=== PATIENT | male | born 1980 | race Hispanic/Latino ===

== ENCOUNTER 2022-07-22 18:38 | Emergency (ER) | payer OTHER ==
--- OUTSIDE RECORDS SUMMARY | 2022-07-22 18:55 | XMS REPORT | Continuity of Care Document ---
:1980 Author Organization [facility] t Address 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 Last Assessmen t & Plan: He may have obstructi ve sleep apnea, will study him overnight and see. The apparatus was supplied here today. Hypertensi Hypertensi Disease Active [facility] on on 8-08 College 00:00: of 00 Medicin e Deficiency Deficiency Disease Active [facility] of 808 College testostero testostero 00:00: of ne ne 00 Medicin biosynthes biosynthes e is is Hyperestro Hyperestro Disease Active [facility] genisheather genisheather 604 College 00:00: of 00 Medicin e Vitamin D Vitamin D Disease Active [facility] deficiency deficiency 4-23 Co llege 00:00: of 00 Medicin e Anxiety Anxiety Disease Active [facility] 2-12 College 00:00: of 00 Medicin e Pain of Pain of Disease Active [facility] left heel left heel 7-11 [facility] 00:00: of 00 Medicin e Allergies, Adverse Reactions, Alerts Allergy Allergy Status Severity Reaction(s) Onset Inactive Treating Comm ents Source Name Type Date Date Clinician NO KNOWN Allergy Active [facility] Social History Social Habit Start Date Stop Date Quantity Comments Source Alcohol intake 2020-11-13 2020-11-13 Current drinker eegoes 00:00:00 00:00:00 of alcohol [facility] Center (finding) Tobacco use and 2020-11-07 2020-11-07 [address] [employer] [facility] Autumn [place] [facility] exposure 00:00:00 00:00:00 Medical Center Sex Ass[birth year] At [birth year] [facility] 00:00:00 00:00:00 Medical Center Smoking Status Start Date Stop Date Source Never smoker [facility] Medications Ordered Filled Start Stop Current Ordering Indication Dosage Frequency Signature Comments Components Source Medication Medication Date Date Medication? Clinician (SIG) Name Name VYVTYLERE 50 Yes [facility] CAPS 04 College 00:00: of 00 Medicin e VYVANSE 50 Yes [facility] MG CAPS 804 College 00:00: of 00 Medicin e hydrocodone Yes [id number] Take 1-2 [facility] -acetaminop 6-14 tablets by Co attila tidwell (NORCO) 00:00: mouth of 10-325 MG 00 every 6 Medicin per tablet hours as e needed for pain promethazin Yes [id number] 25mg Take 1 [facility] e 6-14 Tablet by [place] (PHENERGAN) 00:00: mouth of 25 MG 00 every 6 Medicin tablet hours as e needed for Nausea. hydrocodone 2020-0 Yes [id number] Take 1-2 [facility] -acetaminop 6-14 tablets by Co llege hen ([email or web address]) 00:00: mouth of 10-325 MG 00 every 6 Medicin per tablet hours as e needed for pain promethazin 2020-0 Yes [id number] 25mg Take 1 [facility] e 6-14 Tablet by [place] (PHENERGAN) 00:00: mouth of 25 MG 00 every 6 Medicin tablet hours as e needed for Nausea. hydrocodone 2020-0 Yes [id number] Take 1-2 [facility] -acetaminop 6-14 tablets by [facility] ([email or web address]) 00:00: mouth of 10-325 MG 00 every 6 Medicin per tablet hours as e needed for pain promethazin 2020-0 Yes [id number] 25mg Take 1 [facility] e 6-14 Tablet by [place] (PHENERGAN) 00:00: mouth of 25 MG 00 every 6 Medicin tablet hours as e needed for Nausea. hydrocodone 0 Yes [id number] Take 1-2 [facility] -acetaminop 6-14 tablets by [employer] ([email or web address]) 00:00: mouth of 10-325 MG 00 every 6 Medicin per tablet hours as e needed for pain promethazin 2020-0 Yes [id number] 25mg Take 1 [facility] e 6-14 Tablet by [place] (PHENERGAN) 00:00: mouth of 25 MG 00 every 6 Medicin tablet hours as e needed for Nausea. ezetimibe Yes 10mg QD Take [address] [facility] [address] [facility] (ZETIA) 10 6-11 [facility] mg tablet 13:45: daily. Medica l 50 Center losartan 2020-0 Yes 100mg QD Take [address] [facility] [address] (COZAAR) 6-11 mg by [facility] 100 MG 13:45: mouth Medical tablet 50 daily. Center phentermine 2020-0 Yes 37.5mg QD Take 37.[address] 37.5 MG 6-11 mg by [facility] capsule 13:45: mouth Medical 50 every Center morning. ezetimibe 0 Yes [facility] (ZETIA) 10 5-30 College MG tablet 00:00: of 00 Medicin e ezetimibe 0 Yes [facility] (ZETIA) 10 5-30 College MG tablet 00:00: of 00 Medicin e ezetimibe 0 Yes [facility] (ZETIA) 10 5-30 College MG tablet 00:00: of 00 Medicin e ezetimibe 0 Yes [facility] (ZETIA) 10 5-30 College MG tablet 00:00: of 00 Medicin e ezetimibe 0 Yes [facility] (ZETIA) 10 5-30 College MG tablet 00:00: of 00 Medicin e ezetimibe 0 Yes [facility] (ZETIA) 10 5-30 College MG tablet 00:00: of 00 Medicin e losartan 0 Yes TAKE 1 [facility] (COZAAR) 5-07 TABLET BY Colleg e 100 MG 00:00: MOUTH of tablet 00 EVERY DAY Medicin e losartan 0 Yes TAKE 1 [facility] (COZAAR) 5-07 TABLET BY Colleg e 100 MG 00:00: MOUTH of tablet 00 EVERY DAY Medicin e losartan 0 Yes TAKE 1 [facility] (COZAAR) 5-07 TABLET BY Colleg e 100 MG 00:00: MOUTH of tablet 00 EVERY DAY Medicin e losartan 0 Yes TAKE 1 [facility] (COZAAR) 5-07 TABLET BY Colleg e 100 MG 00:00: MOUTH of tablet 00 EVERY DAY Medicin e losartan 0 Yes TAKE 1 [facility] (COZAAR) 5-07 TABLET BY Colleg e 100 MG 00:00: MOUTH of tablet 00 EVERY DAY Medicin e losartan 0 Yes TAKE 1 [facility] (COZAAR) 5-07 TABLET BY Colleg e 100 MG 00:00: MOUTH of tablet 00 EVERY DAY Medicin e VYVANSE 50 2020-0 Yes [facility] CAPS 5-04 College 00:00: of 00 Medicin e VYVANSE 50 2020-0 Yes [facility] CAPS 5-04 College 00:00: of 00 Medicin e VYVANSE 50 2020-0 Yes [facility] MG CAPS 5-04 College 00:00: of 00 Medicin e VYVANSE 50 2020-0 Yes [facility] CAPS 5-04 College 00:00: of 00 Medicin e VYVANSE 50 2020- No [facility] MG CAPS 10-03 College 00:00: 00:00 of 00 :00 Medicin e VYVANSE 50 2020- No [facility] CAPS 10-03 College 00:00: 00:00 of 00 :00 Medicin e phentermine Yes TAKE 1 [facility] (ADIPEX-P) 3-05 TABLET BY [facility] 37.5 MG 00:00: MOUTH of tablet 00 EVERY DAY Medicin e phentermine Yes TAKE 1 [facility] (ADIPEX-P) 3-05 TABLET BY [facility] 37.5 MG 00:00: MOUTH of tablet 00 EVERY DAY Medicin e phentermine Yes TAKE 1 [facility] (ADIPEX-P) 3-05 TABLET BY [facility] 37.5 MG 00:00: MOUTH of tablet 00 EVERY DAY Medicin e phentermine Yes TAKE 1 [facility] (ADIPEX-P) 3-05 TABLET BY [facility] 37.5 MG 00:00: MOUTH of tablet 00 EVERY DAY Medicin e phentermine Yes TAKE 1 [facility] (ADIPEX-P) 3-05 TABLET BY [facility] 37.5 MG 00:00: MOUTH of tablet 00 EVERY DAY Medicin e phentermine Yes TAKE 1 [facility] (ADIPEX-P) 3-05 TABLET BY [facility] 37.5 MG 00:00: MOUTH of tablet 00 EVERY DAY Medicin e Vital Signs Vital Name Observation Time Observation Value Comments Source HEIGHT 2020-11-10 08:00:00 172.7 cm WEIGHT 2020-11-10 08:00:00 101.9 kg HEIGHT 2020-11-07 13:46:00 172.7 cm WEIGHT 2020-11-07 13:46:00 99.791 kg Body height 2021-02-01 18:44:00 172.7 cm [facility] Body weight 2021-02-01 18:44:00 99.791 kg [facility] of Medicine BMI 2021-02-01 18:44:00 33.45 kg/m2 [facility] Body height 2020-12-21 18:16:00 172.7 cm [facility] Body weight 2020-12-21 18:16:00 99.791 kg [facility] BMI 2020-12-21 18:16:00 33.45 kg/m2 [facility] Body height 2020-11-16 19:08:00 172.7 cm [facility] Body weight 2020-11-16 19:08:00 99.791 kg [facility] BMI 2020-11-16 19:08:00 33.45 kg/m2 [facility] C ol[facility] of Medicine HEIGHT 2020-11-10 08:00:00 172.7 cm WEIGHT 2020-11-10 08:00:00 101.9 kg HEIGHT 2020-11-07 13:46:00 172.7 cm WEIGHT 2020-11-07 13:46:00 99.791 kg Body height 2020-11-02 20:03:00 172.7 cm [facility] Body weight 2020-11-02 20:03:00 99.791 kg [facility] BMI 2020-11-02 20:03:00 33.45 kg/m2 [facility] C [facility] of [facility] Body height 2020-10-31 21:02:00 172.7 cm [facility] C [facility] of Medicine Body weight 2020-10-31 21:02:00 99.791 kg [facility] BMI 2020-10-31 21:02:00 33.45 kg/m2 [facility] C [facility] Procedures This patient has no known procedures. Plan of Care Planned Activity Planned Date Details Comments Source Future Scheduled 2022-06-[address] [facility] Test 00:00:00 (12+) [code = Medical Center DEPRESSION SCREENING (12+)] Future Scheduled 2022-01-31 INFLUENZA VACCINE (#1) [facility] 00:00:00 [code = INFLUENZA Medical Ce nter VACCINE (#1)] Future Scheduled 2021-11-[address] [facility] Test 00:00:00 [facility] r Screening (12+) [code = Tobacco Cessation Counseling and Screening (12+)] Future Scheduled 2021-02-05 COVID-19 Vaccine (1) [facility] Test 13:41:04 [code = COVID-19 of Medicine Vaccine (1)] Future Scheduled 2021-02-05 TETANUS SHOT (ADULT) [facility] Test 13:41:04 [code = TETANUS SHOT of Medi cine (ADULT)] Future Scheduled 2021-02-05 BMI FOLLOW UP PLAN [facility] r College Test 13:41:04 [code = BMI FOLLOW UP of Med icine PLAN] Future Scheduled 2021-02-05 Hepatitis C screening [facility] Test 13:41:04 (procedure) [code = of Medic ine 281374845] Future Scheduled 2021-02-05 [facility] 13:41:04 virus screening of Medicine (procedure) [code = 818701386] Future Scheduled 2021-02-05 FLU VACCINE > 6 MONTHS Postponed from [facility] Test 13:41:04 [code = FLU VACCINE > 6 12/31/2020 of M edicine MONTHS] (Postpone Reason: Patient declined today) Future Scheduled 2021-02-05 COVID-19 Vaccine (1) [facility] Test 13:41:04 [code = COVID-19 of Medicine Vaccine (1)] Future Scheduled 2021-02-05 TETANUS SHOT (ADULT) [facility] Test 13:41:04 [code = TETANUS SHOT of Medi cine (ADULT)] Future Scheduled 2021-02-05 BMI FOLLOW UP PLAN [facility] r [facility] Test 13:41:04 [code = BMI FOLLOW UP of Med icine PLAN] Future Scheduled 2021-02-05 Hepatitis C screening [employer] [facility] [employer] Test 13:41:04 (procedure) [code = of Medic ine [id number]] Future Scheduled 2021-02-05 [facility] 13:41:04 virus screening of Medicine (procedure) [code = 795896659] Future Scheduled 2021-02-05 FLU VACCINE > 6 MONTHS Postponed from [facility] Test 13:41:04 [code = FLU VACCINE > 6 12/31/2020 of M edicine MONTHS] (Postpone Reason: Patient declined today) Future Scheduled 2020-12-21 Hepatitis C screening [employer] Test 14:51:56 (procedure) [code = of Medic ine 633523022] Future Scheduled 2020-12-21 Human immunodeficiency [facility] Test 14:51:56 virus screening of Medicine (procedure) [code = 261181926] Future Scheduled 2020-12-21 FLU VACCINE > 6 MONTHS [facility] Test 14:51:56 [code = FLU VACCINE > 6 of M edicine MONTHS] Future Scheduled 2020-12-21 COVID-19 Vaccine (1) [facility] [facility] [employer] Test 14:51:56 [code = COVID-19 of Medicine Vaccine (1)] Future Scheduled 2020-12-21 TETANUS SHOT (ADULT) [employer] [facility] Test 14:51:56 [code = TETANUS SHOT of Medi cine (ADULT)] Future Scheduled 2020-12-21 BMI FOLLOW UP PLAN [employer] [facility] [employer] Test 14:51:56 [code = BMI FOLLOW UP of Med icine PLAN] Future Scheduled 2020-11-16 COVID-19 Vaccine (1) [facility] [employer] Test 14:10:13 [code = COVID-19 of Medicine Vaccine (1)] Future Scheduled 2020-11-16 TETANUS SHOT (ADULT) [employer] [facility] Test 14:10:13 [code = TETANUS SHOT of Medi cine (ADULT)] Future Scheduled 2020-11-16 BMI FOLLOW UP PLAN [employer] Test 14:10:13 [code = BMI FOLLOW UP of Med icine PLAN] Future Scheduled 2020-11-16 Hepatitis C screening [employer] [facility] Test 14:10:13 (procedure) [code = of Medic ine 540960523] Future Scheduled 2020-11-16 [facility] 14:10:13 virus screening of Medicine (procedure) [code = 426682587] Future Scheduled 2020-11-16 FLU VACCINE > 6 MONTHS [facility] Test 14:10:13 [code = FLU VACCINE > 6 of M edicine MONTHS] Future Scheduled 2020-11-02 TETANUS SHOT (ADULT) [facility] [facility] Test 15:09:17 [code = TETANUS SHOT of Medi cine (ADULT)] Future Scheduled 2020-11-02 BMI FOLLOW UP PLAN [employer] Test 15:09:17 [code = BMI FOLLOW UP of Med icine PLAN] Future Scheduled 2020-11-02 Hepatitis C screening [employer] Test 15:09:17 (procedure) [code = of Medic ine 757962490] Future Scheduled 2020-11-02 [facility] 15:09:17 virus screening of Medicine (procedure) [code = 887512309] Future Scheduled 2020-11-02 FLU VACCINE > 6 MONTHS B [facility] Test 15:09:17 [code = FLU VACCINE > 6 of M edicine MONTHS] Future Scheduled 2020-11-02 COVID-19 Vaccine (1) [facility] Test 15:09:17 [code = COVID-19 of Medicine Vaccine (1)] Future Scheduled 2020-10-31 [place] SLINGS [code = Ordered: [facility] Test 16:38:09 [id number]] 10/31/2020 of Medicine Future Scheduled 2020-10-31 MRI CHEST WO CONTRAST 1 Occurrences B [facility] Test 16:34:37 [code = 02687] starting of Medicine 10/31/2020 until 10/31/2021 Future Scheduled 2020-10-31 COVID-19 Vaccine (1) [facility] Test 16:19:12 [code = COVID-19 of Medicine Vaccine (1)] Future Scheduled 2020-10-31 TETANUS SHOT (ADULT) [facility] Test 16:19:12 [code = TETANUS SHOT of Medi cine (ADULT)] Future Scheduled 2020-10-31 Hepatitis C screening [facility] Test 16:19:12 (procedure) [code = of Medic ine 390383819] Future Scheduled 2020-10-31 Human immunodeficiency B [facility] Test 16:19:12 virus screening of Medicine (procedure) [code = 717989089] Future Scheduled 2020-10-31 FLU VACCINE > 6 MONTHS B [facility] Test 16:19:12 [code = FLU VACCINE > 6 of M edicine MONTHS] Future Scheduled 2016 Lipid panel (procedure) [facility] Test 00:00:00 [code = 34252247] Medical Ce nter Future Scheduled 2000 DTAP/TDAP/TD VACCINES [facility] 00:00:00 (1 - Tdap) [code = Medical C enter DTAP/TDAP/TD VACCINES (1 - Tdap)] Future Scheduled 1999 HEPATITIS C [facility]CREENING [facility] Test 00:00:00 [code = HEPATITIS C Medical Center SCREENING] Future Scheduled 1981 COVID-19 VACCINE (#1) [facility] Test 00:00:00 [code = COVID-[address] VACCINE (#1)] Encounters Start End Encounter Admission Attending Care Care Encounter Source Date/Time Date/Time Type Type Clinicians Facility Department ID 2021-03-11 Outpatient PREMA SIFUENTES Surgery [id number] SLE 00:02:24 LITTLE 2021-02-01 2021-02-01 Office KRISTIN Sifuentes [id number] [facility] 13:40:28 15:14:54 Visit Little Lan AMBULATOR [id number] College Y 0.2.7.2.686 of [id number] Medi inocencia 600 e 2020-12-21 2020-12-21 Office KRISTIN Cardona [id number] [facility] 13:56:22 14:35:08 Visit Castillo Marcelo AMBULATOR [id number] College Y 0.2.7.2.686 of [id number] Medi inocencia 600 e 2020-11-28 2020-11-[address] [facility] [id number] SLE 00:00:00 00:00:00 LITTLE 2020-11-16 2020-11-16 Office KRISTIN Sifuentes [id number] [facility] 13:59:16 14:22:57 Visit Little Lan AMBULATOR [id number] College Y 0.2.7.2.686 of [id number] Medi inocencia 600 e 2020-11-07 2020-11-07 Outpatient [facility] [id number] [facility] 00:00:00 00:00:00 2020-11-02 2020-11-02 Office KRISTIN Sifuentes [id number] [facility] 13:49:18 14:04:18 Visit Little Lan AMBULATOR [id number] College Y 0.2.7.2.686 of [id number] Medi inocencia 600 e 2020-10-31 2020-10-31 Office KRISTIN Sifuentes [id number] [facility] 15:05:39 15:20:39 Visit Little Lan AMBULATOR [id number] College Y [id number] of [id number] Medi inocencia 600 e Results Test Description Test Time Test Comments Results Result Comments Source BUN AND CREATININE W/RATIO 2020-11-10 08:39:00 Test Item Value Reference Range Interpretation Comme nts BLOOD UREA NITROGEN 14 mg/dL 7-21 (BEAKER) (test code = 354) CREATININE (BEAKER) (test 1.08 mg/dL 0.57-1.25 code = 358) BUN/CREAT RATIO (BEAKER) 13 For a normal individual on (test code = 2988582116) a n ormal diet, the reference inter helen for the mass ratio rang es between 12:1 and 20:1 ( BUN in mg/dL/creatinin e in mg/dL) EGFR (BEAKER) (test code = 76 mL/min/1.73 sq m ESTIMATED GFR IS NOT 1092) ACCURATE CRE ATININE CLEARANCE IN [place] EDICTING GLOMERULAR FILT RATION RATE. ESTIMATED GFR IS NOT APPLICABLE FOR DIALYSIS PATIENTS. [id number] 08:39:00 Test Item Value Reference Range Interpretation Comments SODIUM (BEAKER) (test 137 meq/L 136-145 code = 381) POTASSIUM (BEAKER) 4.7 meq/L 3.5-5.1 Specimen slightly (test code = 379) hemolyzed CHLORIDE (BEAKER) 104 meq/L 98-107 (test code = 382) CO2 (BEAKER) (test 29 meq/L 22-29 code = 355) [id number] 08:32:00 Test Item Value Reference Range Interpretation Comments HEMOGLOBIN (BEAKER) (test code = 15.8 GM/DL 13.7-17.5 410)
--- NOTE | 2022-07-22 20:06 | RAD REPORT ---
EXAM DESCRIPTION: RAD - Chest Single View - 07/22/2022 7:43 pm CLINICAL HISTORY: PALPITATIONS Chest pain. COMPARISON: CHEST SINGLE VIEW dated 01/10/2015; CHEST SINGLE VIEW dated 03/27/2012 FINDINGS: Portable technique limits examination quality. The lungs are grossly clear. The heart is normal in size. No displaced fractures. IMPRESSION: No acute intrathoracic process suspected.
[2022-07-22 23:15] LABS: Absolute Lymphocytes (CBC) 1.2 K/uL (0.7-4.9); Hematocrit 48.2 % (39.6-49.0); Lymphocytes % 21.7 % (15.3-44.8); MCV 92.4 fL (80-100); MPV 8.4 fL (7.6-11.3); RBC Red Blood Cell Count 5.22 M/uL (4.33-5.43)
[2022-07-22 23:38] LABS: Albumin 4.3 g/dL (3.4-5.0); Bilirubin Total 1.1 mg/dL (0.2-1.0); Magnesium 1.8 mg/dL (1.6-2.4); Protein, Total 7.9 g/dL (6.4-8.2); Thyroid Stimulating Hormone 2.09 uIU/mL (0.358-3.740); Troponin High Sensitivity 6.4 pg/mL (<58.9)
--- NOTE | 2022-07-22 23:56 | ER ---
Nurse's Notes [facility] Name: Atul Su Age: 42 yrs Sex: Male : 1980 Arrival Date: 07/22/2022 Time: 18:51 Bed 25 Private MD: Diagnosis: Palpitations Presentation: 07/22 18:58 Chief complaint: Patient states: Palpitations since this morning, left arm tingling x jl7 30 minutes. Coronavirus screen: At this time, the client does not indicate any symptoms associated with coronavirus-19. Ebola Screen: No symptoms or risks identified at this time. Initial Sepsis Screen: Does the patient meet any 2 criteria? No. Patient's initial sepsis screen is negative. Does the patient have a suspected source of infection? No. Patient's initial sepsis screen is negative. Risk Assessment: Do you want to hurt yourself or someone else? Patient reports no desire to harm self or others. Onset of symptoms was July 22, 2022. 18:58 Method Of Arrival: Ambulatory jl 18:58 Acuity: RUIZ 2 jl7 Historical: - Allergies: 19:01 No Known Allergies; jl7 - Home Meds: 19:01 valsartan oral [Active]; jl7 - PMHx: 19:01 Hypertensive disorder; jl7 - PSHx: 19:01 left shoulder; jl7 - Immunization history:: Adult Immunizations unknown. - Social history:: Smoking status: Patient denies any tobacco usage or history of. - Family history:: not pertinent. Screenin:49 [facility] ED Fall Risk Assessment (Adult) History of falling in the last 3 months, ll3 including since admission No falls in past 3 months (0 pts) Confusion or Disorientation No (0 pts) Intoxicated or Sedated No (0 pts) Impaired Gait No (0 pts) Mobility Assist Device Used No (0 pt) Altered Elimination No (0 pt) Score/Fall Risk Level 0 - 2 = Low Risk Oriented to surroundings, Maintained a safe environment, Educated pt \T\ family on fall prevention, incl call for assistance when getting out of bed. Abuse screen: Denies threats or abuse. Denies injuries from another. Nutritional screening: No deficits noted. Tuberculosis screening: No symptoms or risk factors identified. Assessment: 22:49 General: Appears comfortable, Behavior is calm, cooperative. Pain: Denies pain. Neuro: ll3 Level of Consciousness is awake, alert, obeys commands, Oriented to person, place, time, situation. Cardiovascular: Reports palpitations, Patient's skin is warm and dry. Respiratory: Respiratory effort is even, unlabored, Respiratory pattern is regular, symmetrical. Derm: Skin is pink, warm \T\ dry. 07/23 00:08 Reassessment: Patient is alert, oriented x 3, equal unlabored respirations, skin bb warm/dry/pink. pt verbalized understanding of and agrees to plan of care discharge instructions given pt ambulated with steady gait to exit accompanied by family. Vital Signs: 07/22 18:58 Pulse 96; Resp 17; Temp 99; Pulse Ox 99% ; Weight 106.59 kg; Height 5 ft. 9 in. (175.26 jl7 cm); Pain 3/10; 19:08 BP 142 / 80; jl7 22:41 BP 133 / 76; Pulse 85; Resp 18; Temp 98.8; Pulse Ox 97% on R/A; mw2 07/23 00:10 BP 139 / 83; Pulse 86; Resp 16 S; Temp 98.4(O); Pulse Ox 98% on R/A; bb 07/22 18:58 Body Mass Index 34.70 (106.59 kg, 175.26 cm) jl7 ED Course: 07/22 18:51 Patient arrived in ED. rg4 19:01 Triage completed. jl7 19:01 Arm band placed on right wrist. EKG completed in triage. Results shown to MD. jl7 19:06 Anton Landrum MD is Attending Physician. rt 22:48 Initial lab(s) drawn, by me, sent to lab. Inserted saline lock: 20 gauge in left ll3 antecubital area, using aseptic technique. Blood collected. 22:49 Patient has correct armband on for positive identification. Bed in low position. Call 3 light in reach. Side rails up X 1. 22:49 No provider procedures requiring assistance completed. ll3 23:02 Ayse Blankenship, YESI is Primary Nurse. bb 23:56 Rony Prince MD is Referral Physician. rt 07/23 00:10 IV discontinued, intact, bleeding controlled, No redness/swelling at site. Pressure bb dressing applied. Administered Medications: No medications were administered Medication: 07/22 22:49 VIS not applicable for this client. ll3 Outcome: 23:56 Discharge ordered by . rt 07/23 00:10 Discharged to home ambulatory, with family. bb Condition: stable Discharge instructions given to patient, Instructed on discharge instructions, follow up and referral plans. Demonstrated understanding of instructions, follow-up care. 00:11 Patient left the ED. bb Signatures: Ayse Blankenship, RN RN bb Palak Lou rg4 Fany Guerra RN RN jl7 Rom Overton 2 Eloisa Currie RN RN ll3 Anton Landrum MD MD rt
--- NOTE | 2022-07-22 23:56 | EDPHYS ---
Physician Documentation [facility] Name: Atul Su Age: 42 yrs Sex: Male : 1980 Arrival Date: 07/22/2022 Time: 18:51 Bed 25 Private MD: ED Physician Anton Landrum HPI: 07/22 19:26 This 42 yrs old Male presents to ER via Ambulatory with complaints of rt Palpitations, Arm Pain. 19:26 Patient presents to the ED with palpitations starting at about noon. Patient states rt that symptoms are worse when he lies down flat. Patient developed a tingling in his arm this evening is prompted him to come to the ED for evaluation. The patient denies chest pain. He states the palpitations been intermittent, none currently. Symptoms are moderate in severity, no other aggravating or alleviating factors. Historical: - Allergies: 19:01 No Known Allergies; jl7 - Home Meds: 19:01 valsartan oral [Active]; jl7 - PMHx: 19:01 Hypertensive disorder; jl7 - PSHx: 19:01 left shoulder; jl7 - Immunization history:: Adult Immunizations unknown. - Social history:: Smoking status: Patient denies any tobacco usage or history of. - Family history:: not pertinent. ROS: 19:26 Constitutional: Negative for fever, chills, and weight loss, Neck: Negative for injury, rt pain, and swelling, Respiratory: Negative for shortness of breath, cough, wheezing, and pleuritic chest pain, Abdomen/GI: Negative for abdominal pain, nausea, vomiting, diarrhea, and constipation, MS/Extremity: Negative for injury and deformity, Skin: Negative for injury, rash, and discoloration, Neuro: Negative for headache, weakness, numbness, tingling, and seizure, Psych: Negative for depression, anxiety, suicide ideation, homicidal ideation, and hallucinations. 19:26 Cardiovascular: Positive for palpitations, Negative for chest pain. Exam: 19:26 Constitutional: This is a well developed, well nourished patient who is awake, alert, rt and in no acute distress. Head/Face: Normocephalic, atraumatic. Neck: Trachea midline, no thyromegaly or masses palpated, and no cervical lymphadenopathy. Supple, full range of motion without nuchal rigidity, or vertebral point tenderness. No Meningismus. Chest/axilla: Normal chest wall appearance and motion. Nontender with no deformity. No lesions are appreciated. Cardiovascular: Regular rate and rhythm with a normal S1 and S2. No gallops, murmurs, or rubs. Normal PMI, no JVD. No pulse deficits. Respiratory: Lungs have equal breath sounds bilaterally, clear to auscultation and percussion. No rales, rhonchi or wheezes noted. No increased work of breathing, no retractions or nasal flaring. Abdomen/GI: Soft, non-tender, with normal bowel sounds. No distension or tympany. No guarding or rebound. No evidence of tenderness throughout. Skin: Warm, dry with normal turgor. Normal color with no rashes, no lesions, and no evidence of cellulitis. MS/ Extremity: Pulses equal, no cyanosis. Neurovascular intact. Full, normal range of motion. Neuro: Awake and alert, GCS 15, oriented to person, place, time, and situation. Cranial nerves II-XII grossly intact. Motor strength 5/5 in all extremities. Sensory grossly intact. Cerebellar exam normal. Normal gait. Psych: Awake, alert, with orientation to person, place and time. Behavior, mood, and affect are within normal limits. 19:26 ECG was reviewed by the Attending Physician. Vital Signs: 18:58 Pulse 96; Resp 17; Temp 99; Pulse Ox 99% ; Weight 106.59 kg; Height 5 ft. 9 in. (175.26 jl7 cm); Pain 3/10; 19:08 BP 142 / 80; jl7 22:41 BP 133 / 76; Pulse 85; Resp 18; Temp 98.8; Pulse Ox 97% on R/A; mw2 07/23 00:10 BP 139 / 83; Pulse 86; Resp 16 S; Temp 98.4(O); Pulse Ox 98% on R/A; bb 07/22 18:58 Body Mass Index 34.70 (106.59 kg, 175.26 cm) jl7 MDM: 07/22 19:14 Patient medically screened. rt 07/23 02:29 Differential diagnosis: Dysrhythmia, anemia, acute coronary syndrome. Data reviewed: rt vital signs, nurses notes, lab test result(s), EKG, radiologic studies. Consideration of Admission/Observation Escalation of care including admission/observation considered. Test considered but Not performed: CT: Low suspicion for pulmonary embolism, CT scan not indicated. Care significantly affected by the following chronic conditions: Hypertension. Counseling: I had a detailed discussion with the patient and/or guardian regarding: the historical points, exam findings, and any diagnostic results supporting the discharge/admit diagnosis, lab results, radiology results, the need for outpatient follow up. 07/22 19:13 Order name: CBC with Diff rt 07/22 19:13 Order name: CMP rt 07/22 19:13 Order name: Troponin High Sensitivity rt 07/22 19:13 Order name: TSH rt 07/22 19:13 Order name: Magnesium rt 07/22 23:20 Order name: CBC with Automated Diff; Complete Time: 23:37 EDMS 07/22 19:13 Order name: Chest Single View XRAY rt 07/22 20:07 Order name: RAD; Complete Time: 21:24 EDMS 07/22 23:38 Order name: Comprehensive Metabolic Panel; Complete Time: 23:47 EDMS 07/22 23:38 Order name: Troponin High Sensitivity; Complete Time: 23:47 EDMS 07/22 23:38 Order name: Magnesium; Complete Time: 23:47 EDMS 07/22 23:38 Order name: Thyroid Stimulating Hormone; Complete Time: 23:47 EDMS EC/20 19:26 Rate is 91 beats/min. Rhythm is regular, Normal Sinus Rhythm with No ectopy. QRS [place] rt is Normal. [place] interval is normal. QRS interval is normal. QT interval is normal. No Q waves. T waves are Inverted in lead III. No ST changes noted. Administered Medications: No medications were administered Disposition Summary: 07/22/22 23:56 Discharge Ordered Location: Home rt Problem: new rt Symptoms: have improved rt Condition: Stable rt Diagnosis - Palpitations rt Followup: rt - With: Private Physician - When: 2 - 3 days - Reason: Followup: rt - With: Rony Prince MD - When: 2 - 3 days - Reason: Discharge Instructions: - Discharge Summary Sheet rt - Palpitations rt Forms: - Medication Reconciliation Form rt - Thank You Letter rt - Antibiotic Education rt - Work release form rt - Prescription Opioid Use rt Signatures: Dispatcher [employer] Fany Valladares RN RN jl7 [place], Anton, MD MD rt
[2022-07-23 01:08] VITALS: BP 139/83; TEMP 98.4; O2SAT 98
--- NOTE | 2022-07-24 15:25 | EKG ---
Test Date: 2022-07-22 Test Time: 18:58:32 Business Services Specialist Sales: [employer] MEASUREMENT RESULTS: Intervals: Rate: 91 ID: [id number] QRSD: 96 QT: 336 QTc: 413 [place]: P: 51 ID: [id number] QRS: 16 T: 26 INTERPRETIVE STATEMENTS: Normal sinus rhythm Nonspecific T wave abnormality Abnormal ECG Compared to ECG 01/10/2015 17:05:03 T-wave abnormality now present Electronically Signed On 07-24-22 15:21:07 HOME CARE CONSULTANT by Rony Prince
== END 2022-07-23 00:11 | disposition home or self-care (01) ==
LOC: ER 18:38
DX: R00.2 Palpitations (principal); I10 Essential (primary) hypertension
CPT/HCPCS: 36415; 71045; 80053; 83735; 84443; 84484; 85025; 93005; 99283